=== PATIENT | female | born 1980 | race African-American/Black ===

== ENCOUNTER 2016-09-26 15:42 | Emergency (ER) | payer MEDICAID, OTHER ==
[~2016-09-26] VITALS: Ht 175.3 cm; Wt 104.0 kg
[2016-09-26] MEDS ORDERED: FAMOTIDINE 20MG/2ML VIAL IV STA (20:11)
[2016-09-26] MEDS ORDERED: ONDANSETRON HCL 4MG/2ML VIAL IV STA (20:11)
[2016-09-26] MEDS ORDERED: SODIUM CHLORIDE 0.9% 1,000 ML IV ONE (20:11)
[2016-09-26] MEDS ORDERED: KETOROLAC 30MG/ML VIAL IV STA (20:11)
[2016-09-26 20:32] LABS: BASOPHILS % 0.3 % (0.0-2.0); EOSINOPHILS % 1.4 % (0.0-5.0); HEMATOCRIT. 34.6 % (36.0-48.0); HEMOGLOBIN. 10.9 g/dL (12.0-16.0); LYMPHOCYTES % 25.2 % (20.0-50.0); MEAN CORPUSCULAR HEMOGLOBIN 23.1 pg (28.0-32.0); MEAN CORPUSCULAR VOLUME 73.4 fL (81.0-99.0); MEAN PLATELET VOLUME 8.7 fl (7.4-10.4); NEUTROPHILS % 66.1 % (40.0-76.0); PLATELET 271 x1000/uL (130-400); RED BLOOD CELL COUNT 4.71 mill/uL (4.2-5.4); RED CELL DISTRIBUTION WIDTH 14.9 % (11.6-14.6)
[2016-09-26 20:33] LABS: CHLORIDE 107 mEq/L (98-107)
[2016-09-26 20:39] LABS: CARBON DIOXIDE 25 mEq/L (21-32)
[2016-09-26 20:53] LABS: HCG SCREEN NEGATIVE
[2016-09-26 21:27] LABS: CLARITY URINE CLEAR (CLEAR); COLOR URINE YELLOW (YELLOW); GLUCOSE URINE NEGATIVE (NEGATIVE); KETONES URINE NEGATIVE (NEGATIVE); LEUKOCYTE ESTERASE URINE NEGATIVE (NEGATIVE); NITRITE URINE NEGATIVE (NEGATIVE); OCCULT BLOOD URINE 3+ (NEGATIVE); PROTEIN URINE NEGATIVE (NEGATIVE); SPECIFIC GRAVITY URINE 1.006 (1.005-1.030); UROBILINOGEN URINE 0.2 E.U./dL (0.2-1.0)
[2016-09-26] MEDS ORDERED: TRAMADOL 50MG TABLET PO ONE (22:30)
[2016-09-26 23:22] VITALS: BP 134/92
== END 2016-09-26 23:25 | disposition home or self-care (01) ==
LOC: ER 19:51
DX: R16.0 Hepatomegaly, not elsewhere classified (principal); R19.7 Diarrhea, unspecified
CPT/HCPCS: 36415; 71010; 76705; 80053; 81001; 83690; 84703; 85025; 96374; 96375; 99285; J1885; J2405; J3490; J7030